=== PATIENT | male | born 1990 | race African-American/Black ===

== ENCOUNTER 2017-04-30 12:50 | Emergency (ER) | payer SELFPAY ==
[~2017-04-30 12:50] MED LIST: ALLE24TA PO; AUGM875T PO; POLY10O OU; PRED20 PO; ZOFR4TAB3 SL
[2017-04-30 13:39] VITALS: BP 141/79; PULSE 70; RESP 16; TEMP 98.7; O2SAT 99
--- NOTE | 2017-04-30 15:41 | PD ---
HPI Chief Complaint: Cold / Flu Symptoms Time Seen by Provider: 15:21 Travel History International Travel<30 days: Yes Contact w/Intl Traveler<30days: Yes Name of Country Traveled to: [place] Traveled to known affect area: Yes ([facility]) History of Present Illness HPI Patient comes emergency department complaining of sinus congestion ongoing for 2 months. Patient reports trying [id number] allergy pills with little to no improvement of symptoms. Patient reports symptoms are worse at night making it difficult for him to breathe through his nose. Patient reports occasional nonbloody rhinorrhea with this. Denies any fevers, nausea, vomiting, headaches , neck pain, sore throat, cough, chest pain, abdominal pain, nausea vomiting, or diarrhea. Denies any pain. PFSH Past Medical History Cancer: No Cardiovascular Problems: No Endocrine: No GERD: Yes Genitourinary: No Immune Disorder: No Musculoskeletal: No Neurologic: No Psychiatric: No Respiratory: No Past Surgical History Other Surgery: Yes (RIGHT CHEST TUBE) Social History Alcohol Use: Yes (SOCIALLY) Tobacco Use: No Substance Use: No Allergies-Medications (Allergen,Severity, Reaction): Coded Allergies: No Known Allergies (Unverified , 05/06/14) Reported Meds & Prescriptions Reported Meds & Active Scripts Active Flonase Nasal [place] (Fluticasone Nasal [place]) 50 Mcg/Act [place] 100 Mcg EACH NARE DAILY Helen-D 24 Hour Allergy (Fexofenadine-Pseudoephedrine) 24 Hour Tab 1 Tab PO DAILY Review of Systems Except as stated in HPI: all other systems reviewed are Neg Physical Exam Narrative GENERAL: Well-developed, well nourished, in no acute distress, and non-ill appearing. SKIN: Focused skin assessment warm and dry. HEAD: Atraumatic. Normocephalic. EYES: Pupils equal and round. EOMI. No scleral icterus. No injection or drainage. ENT: No nasal bleeding or discharge. Mucous membranes pink and moist. Tympanic membranes pearly brush bilaterally. Posterior pharynx nonerythematous without exudate. Uvula is midline. No tenderness to facial sinuses to palpation. Nasal bogginess bilateral naris NECK: Trachea midline. No cervical lymphadenopathy. Supple. No nuclear rigidity. CARDIOVASCULAR: Regular rate and rhythm. No murmur appreciated. RESPIRATORY: No accessory muscle use. No respiratory distress. Clear to auscultation. Breath sounds equal bilaterally. MUSCULOSKELETAL: No obvious deformities. No clubbing. No cyanosis. No edema. Full range of motion. NEUROLOGICAL: Awake and alert. No obvious cranial nerve deficits. Motor grossly within normal limits. Normal speech. PSYCHIATRIC: Appropriate mood and affect; insight and judgment normal. Data Data Last Documented VS Vital Signs Date Time Temp Pulse Resp B/P (MAP) Pulse Ox O2 Delivery O2 Flow Rate FiO2 04/30/17 13:39 98.7 70 16 141/79 (99) 99 Orders Orders Ed Discharge Order (04/30/17 15:44) [facility] Medical Decision Making Medical Screen Exam Complete: Yes Emergency Medical Condition: Yes Differential Diagnosis Sinusitis, allergies, URI, viral syndrome Narrative Course Patient looks great, non-ill appearing. The patient is tolerating fluids and is well hydrated. Appears allergic sinusitis. No clinical evidence by history or evaluation to suspect infection, meningitis and/or sepsis. There was no evidence to suggest deep abscess or cavernous sinus involvement. I discussed with the patient, diagnosis, plan of care, medications and to follow up with the patients primary physician. The patient was instructed to return if the worsens in anyway, especially if not tolerating fluids, increased sinus pain or swelling, headache, persistent fever, difficulty swallowing, chest pain, shortness of breath, or as needed. The patient agreed with plan. ENT referral was also given. Patient in no obvious distress upon re-evaluation. Patient was asked if they wanted to speak to my attending, which the patient did not wish to do at this time. Any questions/concerns in reference to patient diagnosis/condition discussed and clarified prior to patient's discharge. Reinforced sheer importance of close follow up with patient's primary physician or primary care clinic and/or ENT. Instructed patient to return to ED immediately, if symptoms return/worsen. Patient showed understanding of above instructions. Further instructions and recommendations were detailed in discharge paperwork. Patient ambulated without difficulty out of ED at discharge. Diagnosis Primary Impression: Allergic sinusitis Referrals: Charles Florian MD [facility] Patient Instructions: Allergies (ED), General Instructions Additional Instructions: Follow-up with your primary care physician and/or ENT in 3-5 days for reevaluation. Take all medication as prescribed. Continue using over-the- counter Claritin D or Zyrtec-D for symptomatic relief. Follow instructions on the packaging. Use [id number] nasal saline rinse for symptomatic relief. Follow instructions on the packaging. Drink plenty of non-caffeinated and nonalcoholic fluids. Return to the emergency department if symptoms get worse. Med/Other Pt SpecificInfo: Prescription(s) given Scripts Fluticasone Nasal [place] (Flonase Nasal [place]) 50 Mcg/Act [place] 100 MCG EACH NARE DAILY for Allergies, #1 BOTTLE 0 Refills Prov: Piyush Soto MD 04/30/17 Disposition: 01 DISCHARGE HOME Condition: Dilip wOens Apr 30, 2017 15:41
[2017-04-30] MEDS ORDERED: FLUT1SPR5 EACH NARE (15:43)
== END 2017-04-30 16:00 | disposition home or self-care (01) ==
LOC: NEPK 12:50
DX: J30.9 Allergic rhinitis, unspecified (principal); K21.9 Gastro-esophageal reflux disease without esophagitis
CPT/HCPCS: 99283